=== PATIENT | male | born 1975 | race Caucasian/White ===

== ENCOUNTER 2018-07-25 13:07 | Emergency (ER) | payer BC ==
[2018-07-25 13:19] VITALS: BP 149/100
[2018-07-25] MEDS ORDERED: Aspirin 81 mg CHEW TAB* 81 MG TAB.CHEW PO ONE (13:31)
--- NOTE | 2018-07-25 13:33 | UC ---
Cardiac HPI - HPI Summary HPI Summary: 42-year-old male comes in with a chief complaint of left arm pain and numbness. This started around noontime today. It's about a 4 out of 10. He was nauseous sweaty and short of breath with it. The pain does radiate into the left chest. Also radiates up to the neck. Pain gets a little bit worse with taking a deep inspiration. Does not change with movement of the arm. He's had borderline hypertension but has not been treated for it. There is a family history of hypertension. He's had no prior cardiac history. - History of Current Complaint Chief Complaint: UCGeneralIllness Stated Complaint: LT ARM NUMBESS Time Seen by Provider: 07/25/18 13:19 Pain Intensity: 3 - Allergy/Home Medications Allergies/Adverse Reactions: Allergies Allergy/AdvReac Type Severity Reaction Status Date / Time Penicillins Allergy Unknown Verified 07/25/18 13:09 Reaction Details Home Medications: Home Medications NK [No Home Medications Reported] 07/25/18 [History Confirmed 07/25/18] PMH/Surg Hx/FS Hx/Imm Hx Previously Healthy: Yes Cardiovascular History: Hypertension - Surgical History Surgical History: Yes Surgery Procedure, Year, and Place: BILAT ARTHROSCOPIC KNEE SURGERY; - Family History Known Family History: Positive: Hypertension - Social History Alcohol Use: None Substance Use Type: None Smoking Status (MU): Never Smoked Tobacco Review of Systems All Other Systems Reviewed And Are Negative: Yes Constitutional: Positive: Negative Skin: Positive: Negative Eyes: Positive: Negative ENT: Positive: Negative Respiratory: Positive: Shortness Of Breath Cardiovascular: Positive: Chest Pain Gastrointestinal: Positive: Nausea Motor: Positive: Negative Neurovascular: Positive: Negative Musculoskeletal: Positive: Other: - see hpi Neurological: Positive: Other - see hpi Psychological: Positive: Negative Is Patient Immunocompromised?: No Physical Exam Triage Information Reviewed: Yes Appearance: Well-Appearing, No Pain Distress, Well-Nourished Vital Signs: Initial Vital Signs Temp 99.4 F 07/25/18 13:10 Pulse 95 07/25/18 13:10 Resp 16 07/25/18 13:10 BP 149/100 07/25/18 13:10 Pulse Ox 99 07/25/18 13:10 Vital Signs Reviewed: Yes Eye Exam: Normal Eyes: Positive: Conjunctiva Clear Neck: Positive: Supple, Other: - Patient reports some radiaition of the pain into the left neck with palpation. Respiratory: Positive: Chest non-tender, Lungs clear, Normal breath sounds, No respiratory distress Cardiovascular: Positive: RRR Abdomen Description: Positive: Nontender, Soft Musculoskeletal: Positive: Strength Intact, ROM Intact Neurological Exam: Normal Neurological: Positive: Alert, Muscle Tone Normal, Other: - Normal bilateral radial pulses. No sensation deficit. Normal capillary refill. Arms have full range of motion. Psychological Exam: Normal Psychological: Positive: Age Appropriate Behavior Skin Exam: Normal Diagnostics - EKG Cardiac Rate: NL - AT 1313 Cardiac Rhythm: Sinus: Normal - 78 BPM Ectopy: None ST Segment: Normal Summary of EKG Findings: Q WAVES III AND aVF - Assessment/Plan Course Of Treatment: I discussed the EKG with the patient. I do not see any ischemic changes at this time. I recommended further evaluation in the emergency department. We discussed going by ambulance patient declined ambulance and wishes to go by POV. The patient prefers to go to [facility]. I discussed the case with Dr. Duenas at the [facility] emergency department. I let the patient and his drive her know that if anything gets worse they are to call 911 immediately. - Clinical Impression Provider Diagnosis: Chest pain, Left arm pain Discharge - Sign-Out/Discharge Documenting (check all that apply): Patient Departure All imaging exams completed and their final reports reviewed: No Studies - Discharge Plan Condition: Stable Disposition: HOME-RECOMMEND TO ED Referrals: [facility] [Outside] Additional Instructions: GO DIRECTLY TO THE EMERGENCY DEPARTMENT FOR FURTHER EVALUATION OF YOUR LEFT ARM AND CHEST PAIN. - Billing Disposition and Condition Condition: STABLE Disposition: Home-Recommend to ED
== END 2018-07-25 13:43 | disposition home health service (06) ==
LOC: UCCORT 13:07
DX: M79.602 Pain in left arm (principal); R07.9 Chest pain, unspecified; I10 Essential (primary) hypertension
CPT/HCPCS: 93005; 99212; A9270-GY; G0463

== ENCOUNTER 2018-07-25 14:26 | Inpatient (IN) | payer BC ==
[2018-07-25] MEDS ORDERED: Nitroglycerin TAB 0.4 MG* 0.4 MG TAB SL ONE (15:01)
--- NOTE | 2018-07-25 15:05 | ED ---
HPI Chest Pain - HPI Summary HPI Summary: Pt is a 42 y/o M presenting to the ED with a chief complaint of chest pain in his L anterior chest. He states he also experienced L arm numbness, dizziness, and disorientation. He denies SOB. Sx aggravated by exertion. He states he is a former smoker, drinks alcohol about once a week, and his mother has hx of ID and HTN. He has not had an ID. - History of Current Complaint Chief Complaint: EDChestPainROMI Time Seen by Provider: 07/25/18 14:38 Hx Obtained From: Patient Onset/Duration: Started Hours Ago, Still Present Timing: Constant, Lasting Hours Initial Severity: Moderate Current Severity: Mild Pain Intensity: 2 Pain Scale Used: 0-10 Numeric Chest Pain Location: Left Anterior Chest Pain Radiates: No Character: Other: - "weird feeling" Aggravating Factor(s): Exertion Alleviating Factor(s): Nothing Associated Signs and Symptoms: Positive: Chest Pain, Numbness - L arm, Dizziness , Other: - "disoriented". Negative: Shortness of Breath - Allergy/Home Medications Allergies/Adverse Reactions: Allergies Allergy/AdvReac Type Severity Reaction Status Date / Time Penicillins Allergy Unknown Verified 07/25/18 13:09 Reaction Details PMH/Surg Hx/FS Hx/Imm Hx Previously Healthy: Yes Endocrine/Hematology History: Denies: Hx Diabetes Cardiovascular History: Denies: Hx Hypertension, Hx Pacemaker/ICD Respiratory History: Denies: Hx Asthma History: Reports: Hx Kidney Stones Denies: Hx Renal Disease Musculoskeletal History: Denies: Hx Rheumatoid Arthritis, Hx Osteoporosis Sensory History: Denies: Hx Hearing Aid Psychiatric History: Denies: Hx Panic Disorder - Surgical History Surgery Procedure, Year, and Place: BILAT ARTHROSCOPIC KNEE SURGERY; Infectious Disease History: No Infectious Disease History: Denies: Traveled Outside the [place] in Last 30 Days - Family History Known Family History: Positive: Cardiac Disease - mother had ID in 60s, Hypertension - Social History Alcohol Use: Weekly Hx Substance Use: No Substance Use Type: Reports: None Hx Tobacco Use: Yes Smoking Status (MU): Former Smoker Review of Systems Positive: Chest Pain Negative: Shortness Of Breath Neurological: Other - dizziness, disorientation Positive: Numbness - L arm All Other Systems Reviewed And Are Negative: Yes Physical Exam - Summary Physical Exam Summary: GENERAL: Patient is a well-developed and nourished M who is lying comfortable in the stretcher. Patient is not in any acute respiratory distress. HEAD AND FACE: Normocephalic EYES: PERRLA, EOMI x 2. EARS: Hearing grossly intact. MOUTH: Oropharynx within normal limits. NECK: Supple, trachea is midline, no adenopathy, no JVD, no carotid bruit. CHEST: Symmetric, no tenderness at palpation LUNGS: Clear to auscultation bilaterally. No wheezing or crackles. CVS: Regular rate and rhythm, S1 and S2 present, no murmurs or gallops appreciated. ABDOMEN: Soft, non-tender. Bowel sounds are normal. No abnormal abdominal pulsations. EXTREMITIES: Full ROM in all major joints, no edema, no cyanosis or clubbing. NEURO: Alert and oriented x 3. No acute neurological deficits. Speech is normal and follows commands. SKIN: Dry and warm Triage Information Reviewed: Yes Vital Signs On Initial Exam: Initial Vitals Pulse Resp Pulse Ox 66 7 97 07/25/18 14:32 07/25/18 14:32 07/25/18 14:32 Vital Signs Reviewed: Yes Diagnostics - Vital Signs Vital Signs Temp Pulse Resp BP Pulse Ox 07/25/18 14:34 97.5 F 74 21 135/87 96 07/25/18 14:32 66 7 97 - Laboratory Result Diagrams: 07/25/18 14:57 07/25/18 14:57 Lab Statement: Any lab studies that have been ordered have been reviewed, and results considered in the medical decision making process. - Radiology CXR Radiology Interpretation Completed By: Radiologist Summary of Radiographic Findings: No evidence for active cardiopulmonary disease. ED physician has reviewed this report. 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 Chest Pain Course/Dx - Course Course Of Treatment: Pt is a 42 y/o M presenting to the ED with a chief complaint of chest pain in his L anterior chest. He states he also experienced L arm numbness, dizziness, and disorientation. He denies SOB. Sx aggravated by exertion. Pt's physical exam is normal. 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 The pt has already received Aspirin at today. CXR shows no evidence for active cardiopulmonary disease. Pt's labwork is WNL. I discussed the case with Dr. Bailey who will be [place] the [place] [facility] [place]. The pt is stable and agreeable with this plan. - Diagnoses Provider Diagnoses: Chest pain Discharge - Sign-Out/Discharge Documenting (check all that apply): Patient Departure - Discharge Plan Condition: Stable Disposition: ADMITTED TO [facility] Referrals: No Primary Care Phys,NOPCP [Primary Care Provider] - - Billing Disposition and Condition Condition: STABLE Disposition: Admitted to [facility] - Attestation Statements Document Initiated by Scribe: Yes Documenting Scribe: Desi Underwood Provider For Whom Emreibe is Documenting (Include Credential): Nasir Merrill MD. Scribe Attestation: IDesi, scribed for Nasir Merrill MD. on 07/25/18 at 1744. Scribe Documentation Reviewed: Yes Provider Attestation: The documentation as recorded by the scribe, Desi Underwood accurately reflects the service I personally performed and the decisions made by me, Derek Merrill MD. Status of Scribe Document: Viewed Consult Consult: 1640 - I spoke with Dr. Bailey who will be accepting the pt [place] [facility] [place] a dx of chest pain.
[2018-07-25 15:13] LABS: ABS Basophils 0.1 10^3/ul (0-0.2); ABS Eosinophils 0.1 10^3/ul (0-0.6); ABS Lymphocytes 2.4 10^3/ul (1.0-4.8); ABS Monocytes 0.4 10^3/ul (0-0.8); ABS Neutrophils 3.4 10^3/ul (1.5-7.7); Hematocrit 46 % (42-52); Hemoglobin 15.9 g/dL (14.0-18.0); Mean Corpuscular HGB Conc 34 g/dL (31-36); Mean Corpuscular Hemoglobin 30 pg (27-31); Mean Corpuscular Volume 87 fL (80-94); Mean Platelet Volume 8.3 fL (7.4-10.4); Nucleated Red Blood Cells % 0.4; Platelet Count 248 10^3/uL (150-450); Red Blood Count 5.33 10^6 /uL (4.18-5.48); Red Cell Distribution Width 13 % (10-15); White Blood Count 6.4 10^3/uL (3.5-10.8)
[2018-07-25 15:21] LABS: Activated Partial Thrombo Time 35.7 seconds (26.0-38.0); INR 0.97 (0.82-1.09)
[2018-07-25 15:39] LABS: Albumin 4.5 g/dL (3.2-5.2); Albumin/Globulin Ratio 1.7 (1-3); Calcium 10.2 mg/dL (8.6-10.3); Globulin 2.6 g/dL (2-4); Total Bilirubin 0.6 mg/dL (0.2-1.0); Total Protein 7.1 g/dL (6.4-8.9)
[2018-07-25 17:35] LABS: EGFR African American 92.2 (>60); EGFR Non-African American 76.2 (>60); Potassium 4.5 mmol/L (3.5-5.0)
[2018-07-25 20:09] LABS: Urine Appearance Clear; Urine Bilirubin Negative (Negative); Urine Blood Negative (Negative); Urine Color Yellow; Urine Glucose Negative (Negative); Urine Ketones Negative (Negative); Urine Nitrite Negative (Negative); Urine Protein Negative (Negative); Urine Specific Gravity 1.014 (1.010-1.030); Urine Urobilinogen Negative (Negative)
[2018-07-25] MEDS: Heparin VIAL(*) 5000 UNITS/ML VIAL (FIVE THOUSAND) SUBCUT SCH (21:11)
--- NOTE | 2018-07-25 21:20 | HP ---
Amended report to enter cosigning physician. CC: Dr. Conroy* HISTORY AND PHYSICAL: DATE OF ADMISSION: 07/25/18 PRIMARY CARE PROVIDER: The patient has no primary care provider. Therefore, I would recommend the patient be referred to [facility] on discharge. OTHER PROVIDER: Dr. Conroy. ATTENDING PHYSICIAN: Dr. Lopez* (dictated by Anna Buenrostro, SHANKAR). CHIEF COMPLAINT: 1. Chest pain. 2. Left arm numbness. 3. Dizziness. 4. Disorientation. HISTORY OF PRESENT ILLNESS: Mr. Lyly Cr is a 42-year-old male with a past medical history significant for kidney stones, who presented to the emergency department today after being seen at urgent care due to left chest pain, left arm numbness, dizziness, and disorientation. He reports that around 12 o'clock , he was standing talking to some friends and he started to feel pressure in his left arm. It felt as if the left arm was swollen. He said the pain or the pressure gradually extended into his left chest wall. He reports that during this episode he also felt a little dizzy and "out of it." He reports that these symptoms lasted about 2 hours. He reports that the symptoms were aggravated by exertion. He denies any shortness of breath or diaphoresis. He does report that he was mildly nauseous. He reports he went to [facility] for further evaluation who then recommended that he come here. He reports by the time he left [facility], the symptoms were almost resolved. He reports that by the time he was given the nitro here in the emergency department , his symptoms were almost completely gone, but the nitro completely resolved the left arm pressure and numbness. While in the emergency department, the patient had an EKG, which was normal sinus rhythm with possible Q waves in III and aVF. Given these findings, hospitalists were asked to evaluate for admission. PAST MEDICAL HISTORY: Kidney stones. PAST SURGICAL HISTORY: Bilateral knee arthroscopy. HOME MEDICATIONS: The patient has no home medications. ALLERGIES: PENICILLIN. FAMILY HISTORY: The patient reports dad is due to suicide. The patient reports mother had an DE with stents in her 60s and has history of hypertension and diabetes. SOCIAL HISTORY: The patient works at [employer]. The patient is a former smoker. He reports he smoked for approximately 4 years. The patient drinks alcohol on a weekly basis. He reports he drinks 1 to 2 beers weekly. The patient denies drug use. REVIEW OF SYSTEMS: A 14-point review of systems was performed and all pertinent positive and negative findings are in the HPI. All others are negative. PHYSICAL EXAMINATION GENERAL: Mr. Lyly Cr is a 42-year-old male who is sitting in bed. He appears to be in no acute distress. He appears stated age. VITAL SIGNS: Temp 97.5, HR 64, RR 13, O2 saturation 100% on room air, BP 127/ 95. HEENT: EOMs intact. PERRLA. Oral mucosa is moist without lesion. Posterior pharynx is clear. NECK: Full range of motion. No lymphadenopathy. RESPIRATORY: Symmetrical chest expansion. No accessory muscle use. LUNGS: Clear to auscultation. No rhonchi, wheezes, or rubs. CV: Regular rate and rhythm. S1, S2 present. No murmurs, rubs, or gallops. ABDOMEN: Soft, nontender to palpation. Bowel sounds normoactive. EXTREMITIES: Skin is warm and smooth bilaterally. No edema. No clubbing or cyanosis. Pedal pulses 2+ bilaterally. MUSCULOSKELETAL: Full range of motion. No pain or deformities. NEURO: Awake, alert, oriented x4. Motor strength is 5/5 in upper and lower extremities bilaterally. SKIN: Grossly intact without lesions. DIAGNOSTIC STUDIES/LABORATORY DATA: WBC 6.4, hemoglobin 15.9, hematocrit 46, platelets 248. D-dimer less than 200. Sodium 140, potassium 4.5, chloride 104 , carbon dioxide 30, BUN 15, creatinine 1.07. Troponin 0.00, repeat troponin 0.00. ASSESSMENT AND PLAN: Mr. Lyly Cr is a 42-year-old male with a past medical history significant for kidney stones, who presented to the emergency department today with complaints of exertional chest pain. The patient will be admitted OBV. 1. Chest pain: While in the emergency department, the patient has had 2 troponins, both of which are 0.00. The patient has had an EKG, which revealed possible Q waves in lead III and aVF. The ED provider spoke with Dr. Conroy who recommended admission. I also spoke with Dr. Conroy who recommended admission given his Q waves and exertional chest pain. The patient will be admitted on telemetry. The patient will be ordered a stress test. 2. FEN: The patient will be provided with a heart-healthy diet. 3. Code status: The patient is a full code. 4. DVT prophylaxis: Based on the DVT risk assessment, the patient is moderate risk. I will order subcu heparin q.12 hours. TIME SPENT: Approximately 65 minutes were spent on this admission, greater than half the time was spent with the patient and caregiver obtaining my history and performing physical exam and reviewing my plan of care. This case has been reviewed with my attending, Dr. Lopez, who is in agreement with my plan of care. Reviewed by ANNA BUENROSTRO NP 07/26/18 @ 1909 [id number]/CPS #: [id number] MTDD
[2018-07-26 05:23] LABS: ABS Eosinophils 0.1 10^3/ul (0-0.6); ABS Lymphocytes 2.4 10^3/ul (1.0-4.8); ABS Monocytes 0.4 10^3/ul (0-0.8); ABS Neutrophils 2.5 10^3/ul (1.5-7.7); Eosinophil % 2.7 %; Hematocrit 45 % (42-52); Lymphocyte % 43.7 %; Mean Corpuscular HGB Conc 33 g/dL (31-36); Mean Corpuscular Hemoglobin 29 pg (27-31); Mean Corpuscular Volume 87 fL (80-94); Mean Platelet Volume 8.5 fL (7.4-10.4); Nucleated Red Blood Cells % 0.2; Platelet Count 229 10^3/uL (150-450); Red Blood Count 5.15 10^6 /uL (4.18-5.48); Red Cell Distribution Width 14 % (10-15); White Blood Count 5.5 10^3/uL (3.5-10.8)
[2018-07-26 05:41] LABS: Albumin 3.9 g/dL (3.2-5.2); Albumin/Globulin Ratio 1.6 (1-3); BUN/Creatinine Ratio 19.6 (8-20); Calcium 9.3 mg/dL (8.6-10.3); EGFR African American 92.2 (>60); EGFR Non-African American 76.2 (>60); Globulin 2.4 g/dL (2-4); HDL Cholesterol 40.5 mg/dL; Potassium 3.9 mmol/L (3.5-5.0); Total Bilirubin 0.7 mg/dL (0.2-1.0); Total Protein 6.3 g/dL (6.4-8.9)
[2018-07-26 05:56] LABS: TSH (Thyroid Stimulating Horm) 1.14 mcIU/mL (0.34-5.60)
[2018-07-26] MEDS: Heparin VIAL(*) 5000 UNITS/ML VIAL (FIVE THOUSAND) SUBCUT SCH ×2 (07:04→20:21)
--- NOTE | 2018-07-26 15:11 | PN ---
Subjective Date of Service: 07/26/18 Interval History: Mr. Lyly Cr reports that he is feeling well today. He has had no chest pain today. He denies any complaint at all. He does note that the events of yesterday that brought him to the hospital were very frightening. He also notes that he feels he has been more fatigued in general lately and has wondered for some time if there could be something wrong with his heart. Objective Active Medications: Acetaminophen (Tylenol Tab*) 650 mg PO Q4H PRN Heparin Sodium (Porcine) (Heparin Vial(*)) 5,000 units SUBCUT Q12HR NEY Vital Signs: Temp Pulse Resp BP Pulse Ox 97.6 F 66 20 128/82 98 07/26/18 11:12 07/26/18 11:12 07/26/18 11:12 07/26/18 11:12 07/26/18 11:12 Oxygen Devices in Use Now: None Appearance: Male lying in bed in NAD Eyes: No Scleral Icterus Ears/Nose/Mouth/Throat: Mucous Membranes Moist Neck: Trachea Midline Respiratory: Symmetrical Chest Expansion and Respiratory Effort, Clear to Auscultation Cardiovascular: NL Sounds; No Murmurs; No JVD, No Edema Abdominal: NL Sounds; No Tenderness; No Distention Extremities: No Edema Skin: No Rash or Ulcers Neurological: Alert and Oriented x 3, NL Muscle Strength and Tone Nutrition: Taking PO's Result Diagrams: 07/26/18 04:27 07/26/18 04:27 Assess/Plan/Problems-Billing Assessment: Mr. Lyly Cr is a 42 yo M with a PMH significant for kidney stones who was admitted on 07/25/18 with chest pain with concern for presence of q waves on EKG. - Patient Problems (1) Chest pain Comment: - EKG with Q waves in Leads II, III and avF - Trops 0.00 x 3 - Plan for stress test on Saturday (2) DVT prophylaxis Comment: - Heparin SQ (3) Full code status Comment: Status and Disposition: OBV.
--- NOTE | 2018-07-27 07:54 | PN ---
Subjective Date of Service: 07/27/18 Interval History: Mr. Lyly Cr states that he is feeling well today. He has had no further chest pain. Objective Active Medications: Acetaminophen (Tylenol Tab*) 650 mg PO Q4H PRN Heparin Sodium (Porcine) (Heparin Vial(*)) 5,000 units SUBCUT Q12HR NEY Vital Signs: Temp Pulse Resp BP Pulse Ox 97.8 F 66 18 124/76 96 07/26/18 23:10 07/26/18 23:10 07/26/18 23:10 07/26/18 23:10 07/26/18 23:10 Oxygen Devices in Use Now: None Appearance: Male lying in bed in NAD Eyes: No Scleral Icterus Ears/Nose/Mouth/Throat: Mucous Membranes Moist Neck: Trachea Midline Respiratory: Symmetrical Chest Expansion and Respiratory Effort, Clear to Auscultation Cardiovascular: NL Sounds; No Murmurs; No JVD, No Edema Abdominal: NL Sounds; No Tenderness; No Distention Extremities: No Edema Skin: No Rash or Ulcers Neurological: Alert and Oriented x 3, NL Muscle Strength and Tone Nutrition: Taking PO's Result Diagrams: 07/26/18 04:27 07/26/18 04:27 Assess/Plan/Problems-Billing Assessment: Mr. Lyly Cr is a 42 yo M with a PMH significant for kidney stones who was admitted on 07/25/18 with chest pain with concern for presence of q waves on EKG. - Patient Problems (1) Chest pain Comment: - EKG with Q waves in Leads II, III and avF - Trops 0.00 x 3 - Plan for stress test on Saturday (2) DVT prophylaxis Comment: - Heparin SQ (3) Full code status Comment: Status and Disposition: OBV.
[2018-07-27] MEDS: Heparin VIAL(*) 5000 UNITS/ML VIAL (FIVE THOUSAND) SUBCUT SCH ×2 (08:43→20:51)
[2018-07-27] MEDS: Aspirin 81 mg CHEW TAB* 81 MG TAB.CHEW PO SCH (08:43)
[2018-07-28] MEDS: Acetaminophen TAB* 325 MG PO PRN ×2 (01:32→13:29)
[2018-07-28] MEDS ORDERED: Cyclobenzaprine TAB* 10 MG PO ONE (08:49)
[2018-07-28 09:07] LABS: Magnesium 2.2 mg/dL (1.9-2.7)
[2018-07-28] MEDS: Aspirin 81 mg CHEW TAB* 81 MG TAB.CHEW PO SCH (09:08)
[2018-07-28] MEDS: Heparin VIAL(*) 5000 UNITS/ML VIAL (FIVE THOUSAND) SUBCUT SCH (09:09)
[2018-07-28 15:07] VITALS: BP 126/93
--- NOTE | 2018-07-28 20:59 | DS ---
CC: [facility] * DISCHARGE SUMMARY: DATE OF ADMISSION: 07/25/18 DATE OF DISCHARGE: 07/28/18 PRIMARY CARE PROVIDER: [facility]. ATTENDING PHYSICIAN: Dr. Cindy Parker * (dictated by Elena Toribio NP). PRIMARY DIAGNOSIS: Chest pain. STUDIES WHILE IN THE HOSPITAL: 1. EKG on 07/25/18 shows normal sinus rhythm with a rate of 78, QTc of 421, Q- waves present in inferior leads. 2. Chest x-ray on 07/25/18 reads as no evidence for active cardiopulmonary disease. 3. EKG on 07/25/18 shows normal sinus rhythm with a rate of 73, QTc 428, Q- waves present in inferior leads. 4. EKG on 07/26/18 shows normal sinus rhythm with a rate of 63, QTc 440, Q- waves present in inferior leads. 5. Nuclear cardiac stress test on 07/28/18 reads as decreased ejection fraction of 48%. No definite fixed or reversible perfusion defects. Assessment is low risk. HISTORY OF PRESENT ILLNESS AND HOSPITAL COURSE: Mr. Lyly Cr is a 42-year- old male with past medical history of nephrolithiasis, who presented to the emergency room on 07/25/18 with complaints of chest pain, left arm numbness and dizziness. Please see the history and physical by Anna Hardin NP, for a complete summary of the events leading up to this hospitalization. In short, the patient presented to [facility] and was ultimately sent to the emergency room. He suddenly developed pressure and tingling in his left arm and reported feeling dizzy. He had these symptoms for approximately 2 hours and they were all worsened by exertion. In the emergency room, the patient did receive a dose of nitro, although at that point his symptoms had essentially resolved. The patient did have an EKG in the emergency room, which was concerning for Q-waves in inferior leads. He had lab work which was unremarkable including a negative troponin. Due to the concern for chest pain and abnormal EKG, the patient was admitted by the hospitalist service. The patient was placed on telemetry and had no evidence of arrhythmias. He did have 2 additional negative troponins. He had repeat EKGs, which were consistent with the first. He had an uneventful weekend without any recurrence in symptoms. He had a stress test this morning with results noted above. There were no perfusion defects, though the stress test was read as intermediate risk due to the low ejection fraction. I did review these results with the patient and his significant other at the bedside. Again, at this point, the patient has not had any recurrence in symptoms and he is anxious to return home. On exam, the patient has no neurological deficits. His heart is in regular rate and rhythm without murmurs, rubs, or gallops. His lungs are clear to auscultation without rhonchi, wheezes, or rubs. Mr. Lyly Cr is stable for discharge today. Vital signs are as follows: Temp 97.8, heart rate 73, respiratory rate 16, oxygen saturation 98% on room air , blood pressure 126/93. DISCHARGE MEDICATIONS: None. DISCHARGE PLAN: Mr. Lyly Cr will be discharged home. Activity will be as tolerated. Diet will be regular as tolerated. The patient was not taking any medications prior to admission and I have not discharged him on any medications. I did recommend that he follow up with the [facility] as he does not have a primary care provider. I also recommended that he may benefit from an outpatient cardiology referral due to his abnormal EKG and decreased ejection fraction. The patient has been advised to return to the emergency room or nearest hospital for any worsening of symptoms, shortness of breath, lightheadedness, dizziness, chest discomfort, high fever, chills, night sweats, loss of consciousness, or any other worrisome signs or symptoms. DISCHARGE CONDITION: Stable. DISCHARGE DISPOSITION: Home. This is a summarized report of a complex medical history and hospital stay. For further details, please see the entire medical record. TIME SPENT: Approximately 40 minutes was spent on this discharge. ELENA TORIBIO, SHANKAR [id number]/CPS #: [id number] [place]
== END 2018-07-28 15:30 | disposition home or self-care (01) | DRG 203 ==
LOC: ED 14:26 → MEDTELE 19:44 → OBSVTOIN 07-27 10:24
PROVIDERS: ADMIT Hospitalist; ATTEND Internal Medicine
DX: R07.9 Chest pain, unspecified (principal); R94.31 Abnormal electrocardiogram [ECG] [EKG]; R42 Dizziness and giddiness; R20.0 Anesthesia of skin; Z87.442 Personal history of urinary calculi; Z88.0 Allergy status to penicillin; Z81.8 Family history of other mental and behavioral disorders; Z82.49 Family history of ischemic heart disease and other diseases of the circulatory system; Z83.3 Family history of diabetes mellitus; Z87.891 Personal history of nicotine dependence
CPT/HCPCS: 36415; 71046; 78452; 80053; 80061; 81003; 83036; 83735; 84443; 84484; 85025; 85379; 85610; 85730; 93005; 93017; 99284; A9270-GY; A9502; G0378; J1644